=== PATIENT | female | born 1955 | race Caucasian/White ===

== ENCOUNTER → 2016-05-01 | Outpatient (CLI) | payer BC ==
[~2016-05-01] MED LIST: AMLO-114 PO; ATOR-22 PO; CALC500C70 PO; CYAN10005 PO; ESCI10TA17 PO; METO1TAB69 PO; MULT-513 PO; PRLSR20 PO; PRM625 PO; [UNRECOGNIZED DRUG - OTHER]
--- NOTE | 2016-05-01 13:35 | MAMMOGRAPHY REPORT ---
BILATERAL DIGITAL SCREENING MAMMOGRAM TOMOSYNTHESIS WITH CAD: 05/01/2016 CLINICAL HISTORY: Routine screening. Patient has no complaints. TECHNIQUE: Breast tomosynthesis in addition to standard 2D mammography was performed. Current study was also evaluated with a Computer Aided Detection (CAD) system. COMPARISON: Comparison is made to exams dated: 04/04/2015 mammogram, 02/12/2013 mammogram, 02/22/2014 mammogram, 02/10/2012 mammogram, and 02/05/2011 mammogram - [facility]. BREAST COMPOSITION: The tissue of both breasts is heterogeneously dense, which may obscure small ma sses. FINDINGS: No suspicious masses, calcifications, or areas of architectural distortion are noted in e ither breast. There has been no significant interval change compared to prior exams. A biopsy marke r clip with associated calcifications in the left 12:00 breast is stable. A biopsy marker clip is a lso noted in the right upper outer quadrant. IMPRESSION: ACR BI-RADS CATEGORY 2: BENIGN There is no mammographic evidence of malignancy. A 1 year screening mammogram is recommended. The p atient will receive written notification of the results. Approximately 10% of breast cancers are not detected with mammography. A negative mammographic repor t should not delay biopsy if a clinically suggestive mass is present. Sindy Hamm M.D. /:05/01/2016 12:52:03 Vocal Performer: Yahir GRIMM(R)(M), [facility] letter sent: Normal 1/2 BI-RADS Code: ACR BI-RADS Category 2: Benign
== END | disposition home or self-care (01) ==
LOC: C.MAMM 09:40
PROVIDERS: ATTEND Obstetrics & Gynecology
DX: Z12.31 Encounter for screening mammogram for malignant neoplasm of breast (principal)

== ENCOUNTER → 2017-06-09 | Outpatient (CLI) | payer OTHER ==
[~2017-06-09] MED LIST changes: +METO100T44 PO; -METO1TAB69 PO
--- NOTE | 2017-06-10 07:46 | MAMMOGRAPHY REPORT ---
BILATERAL DIGITAL SCREENING MAMMOGRAM TOMOSYNTHESIS WITH CAD: 06/09/2017 CLINICAL HISTORY: Routine screening. TECHNIQUE: Breast tomosynthesis in addition to standard 2D mammography was performed. Current study was also evaluated with a Computer Aided Detection (CAD) system. COMPARISON: Comparison is made to exams dated: 05/01/2016 mammogram, 04/04/2015 mammogram, 02/22/2014 mammogram, 02/12/2013 mammogram, 02/10/2012 mammogram, and 02/05/2011 mammogram - [facility]. BREAST COMPOSITION: There are scattered areas of fibroglandular density in both breasts. FINDINGS: There is stable nodularity of the right breast, and a stable dumbbell-shaped biopsy marker clip in the right upper outer quadrant. A linear scar marker overlies the 12:00 left breast and the re is a stable alex-shaped biopsy marker clip in the 12:00 left breast. There are stable punctate den sities near the scar marker in the left breast. However, there is a possible new cluster of microcalc ifications in the 6:00 posterior left breast, for which additional spot magnification views are recom mended. No other suspicious mass, architectural distortion or cluster of microcalcifications is seen. IMPRESSION: ACR BI-RADS CATEGORY 0: INCOMPLETE EVALUATION: NEED ADDITIONAL IMAGING EVALUATION The cluster of microcalcifications in the 6:00 posterior left breast need additional imaging evaluati on. The patient will be called to schedule an appointment. Approximately 10% of breast cancers are not detected with mammography. A negative mammographic report should not delay biopsy if a clinically suggestive mass is present. Mamie Reynoso M.D. ay/:06/09/2017 17:02:49 Sheet Metal Superintendent: Yahir GRIMM(Jarod)(M), [facility] letter sent: Addl Imaging 0 BI-RADS Code: ACR BI-RADS Category 0: Incomplete Evaluation: Need Additional Imaging Evaluation
== END | disposition home or self-care (01) ==
LOC: C.MAMM 14:34
PROVIDERS: ATTEND Obstetrics & Gynecology
DX: Z12.31 Encounter for screening mammogram for malignant neoplasm of breast (principal); R92.0 Mammographic microcalcification found on diagnostic imaging of breast

== ENCOUNTER → 2017-06-18 | Outpatient (CLI) | payer OTHER ==
--- NOTE | 2017-06-19 07:58 | MAMMOGRAPHY REPORT ---
UNILATERAL LEFT DIGITAL DIAGNOSTIC MAMMOGRAM: 06/18/2017 CLINICAL HISTORY: Callback from screening mammography for a new cluster of microcalcifications in the 6:00 left breast. Patient has a history of prior benign stereotactic biopsy and excisional biopsy i n the 12:00 left breast. TECHNIQUE: Spot magnification left CC and ML views were obtained. COMPARISON: Comparison is made to exams dated: 06/09/2017 mammogram, 05/01/2016 mammogram, 04/04/2015 ma mmogram, 02/22/2014 mammogram, 02/12/2013 mammogram, and 02/10/2012 mammogram - [facility]. BREAST COMPOSITION: There are scattered areas of fibroglandular density in the left breast. FINDINGS: There is a 15 mm cluster of amorphous microcalcifications in a somewhat linear distributio n in the 6:00 posterior left breast. No associated asymmetry or architectural distortion. These génesis rocalcifications were not definitely seen on prior mammograms including spot magnification views perf ormed in 2007 and although they could represent benign calcifications such as those determined to be benign from prior biopsies, there remain indeterminate given the interval development and definitive characterization with a stereotactic guided biopsy is recommended. IMPRESSION: ACR BI-RADS CATEGORY 4: SUSPICIOUS Left breast stereotactic guided biopsy is recommended for a new 15 mm cluster of amorphous microcalci fications in the 6:00 posterior breast. These results and recommendations were discussed with the patient at the time of the exam. She tenta tively schedule the biopsy prior to leaving our department. Approximately 10% of breast cancers are not detected with mammography. A negative mammographic report should not delay biopsy if a clinically suggestive mass is present. Mamie Reynoso M.D. ay/:06/18/2017 09:24:12 Coat Hanger Shaper Machine Operator: Yahir GRIMM(Jarod)(M), [facility] letter sent: Abnormal 4/5 BI-RADS Code: ACR BI-RADS Category 4: Suspicious
== END | disposition home or self-care (01) ==
LOC: C.MAMM 09:00
PROVIDERS: ATTEND Obstetrics & Gynecology
DX: R92.0 Mammographic microcalcification found on diagnostic imaging of breast (principal)

== ENCOUNTER → 2017-07-08 | Outpatient (CLI) | payer OTHER ==
--- NOTE | 2017-07-08 13:13 | Discharge Instructions ---
Discharge Instructions Procedure Procedure Date: July 08, 2017. Reason for visit: Left Calcs. Discharge Discharge Date: July 08, 2017. Discharge Diagnosis: post left breast stereotactic guided biopsy Instructions Activity Recommendations: Additional Limitations (see below) Return to School/Work: no limitations Recommended Home Diet: No Limitations Provider Instructions: ACTIVITY RECOMMENDATIONS: * No lifting, pushing, pulling or exercising the affected side for three days. RETURN TO SCHOOL/WORK: * You may return to work/school after the procedure, but do not perform any strenuous activities for 24 to 48 hours. MEDICATIONS: * Tylenol (two 325 mg) every four to six hours if needed for mild pain (if not allergic to Tylenol). DIET: * Resume previous diet. SPECIAL CARE INSTRUCTIONS: * Keep biopsy site dry for 24 hours. May shower after 24 hours, but do not soak (bathe) incision. * May remove Tegaderm (plastic patch) tomorrow AFTER showering. * Leave the steri-strips on for one week. Allow the steri-strips to fall off by themselves. If not off after one week, you may remove them. You may place a Bandaid crosswise over the strips, if desired. * Apply ice 10 minutes on and 10 minutes off as needed. * Wear a bra at bedtime to sleep more comfortably for 2-3 days. * Your referring physician should have the results after approximately 5 to 7 business days. * Call for unusual bleeding, fever, drainage, etc or if you have any questions call [phone] during normal business hours or after hours call Dr Reynoso, . FOLLOW UP VISIT: Follow-up with Referring Physician as scheduled. Allergies Coded Allergies: Animal Dander (Verified Allergy, Unknown, ., 07/13/14) Dust (Verified Allergy, Unknown, ., 07/13/14) NO KNOWN DRUG ALLERGIES (Verified Allergy, Unknown, ., 07/13/14) POLLEN (Verified Allergy, Unknown, ., 07/13/14) Emmy Fontanez Recommendations: Call your doctor if: * Temperature above 101 degrees * Pain not relieved by pain medicine ordered * There is increased drainage or redness from any incision * You have any unanswered questions or concerns. Your Doctors Instructions noted above were prepared by provider Mamie Reynoso. Patient Signature Section: Patient Instructions Signature Page Esther Starke Patient (or Guardian) Signature/Date: I have read and understand the instructions given to me by my caregivers. Caregiver/RN/Doctor Signature/Date: The above-named patient and/or guardian has received patient instructions on this date. + Original Patient Signature Page (only) stays with chart. Please make copy for patient.
--- NOTE | 2017-07-08 15:22 | MAMMOGRAPHY REPORT ---
STEREOTACTIC GUIDED BIOPSY LEFT BREAST: 07/08/2017 CLINICAL HISTORY: 15 mm cluster of amorphous and punctate microcalcifications in the 6:00 posterior l eft breast, located distal to the previous excisional biopsy and stereotactic biopsy which were perfo rmed in the 12:00 middle one third of the left breast. Patient presents for stereotactic guided biop sy. COMPARISON: Comparison is made to exams dated: 06/18/2017 mammogram, 06/09/2017 mammogram, 05/01/2016 ma mmogram, 04/26/2015 mammogram, and 04/13/2015 mammogram - [facility]. PATIENT CONSENT: After explaining the risks, benefits and alternatives of the procedure to the patien t, informed consent was obtained both verbally and in writing. Specific risks include: Bleeding, inf ection, puncture of adjacent structure, pain, nontarget biopsy, sampling error, metal allergy and med ication reaction. PROCEDURE DESCRIPTION: A time-out was performed and the left breast was confirmed as the site of biop sy. The patient was placed prone on the stereotactic biopsy table and the breast was placed in CC fro m below compression. A tomosynthesis information developer view was obtained which redemonstrates the punctate calcif ications in question. Repositioning was performed to offset a blood vessel located near the calcific ations in question. The calcifications were then targeted utilizing the coordinates obtained by the computer. The skin was prepped with Betadine. 1% Lidocaine with and without epinipherine was adminis tered as local anesthesia. A small skin incision was made. Through the incision, the needle was inse rted to the depth determined by the computer. 4 samples were obtained using a DB3 [employer] 9-gauge vac uum-assisted biopsy device. The specimen radiograph demonstrated several special service representative microcalcific ations, therefore, a T-shaped metallic marker was placed at the biopsy site. There was no immediate c omplication. Hemostasis was achieved after several minutes of manual compression. The samples were s ent to pathology in two appropriately labeled containers, "with calcifications" and "without calcific ations". All of the samples were obtained from the same single biopsy site. Postprocedure CC and ML views of the left breast were obtained. There is a new T-shaped metallic bi opsy marker clip in the 6:00 far posterior left breast. A small hematoma is noted surrounding the bi opsy clip measuring approximately 9 x 27 mm. There are also a few residual microcalcifications at th e biopsy site. A alex-shaped biopsy marker clip is again noted in the 12:00 middle one third of the l eft breast, denoting a site of remote benign stereotactic biopsy. IMPRESSION: STEREOTACTIC GUIDED BIOPSY Status post left breast stereotactic guided biopsy of clustered microcalcifications in the 6:00 poste rior breast, with T-shaped biopsy marker clip placed at the site. The patient will receive notification of the pathology results from her referring physician. Mamie Reynoso M.D. ay/:07/08/2017 13:44:56 Coffee Grinder: Dipti SCALES)(Maty), [facility]
--- NOTE | 2017-07-08 15:22 | MAMMOGRAPHY REPORT ---
UNILATERAL LEFT DIGITAL DIAGNOSTIC MAMMOGRAM: 07/08/2017 CLINICAL HISTORY: Status post left breast stereotactic guided biopsy of a grouping of punctate microc alcifications in a linear distribution in the 6:00 posterior breast. Patient has a history of prior benign excisional biopsy and stereotactic biopsy in the left breast and also stereotactic biopsy in t he right breast. Please refer to the report from left breast stereotactic guided biopsy performed at the same time for full detail. IMPRESSION: POST PROCEDURE IMAGING FOR MARKER PLACEMENT Please refer to the report from left breast stereotactic guided biopsy performed at the same time for full detail. Approximately 10% of breast cancers are not detected with mammography. A negative mammographic report should not delay biopsy if a clinically suggestive mass is present. Mamie Reynoso M.D. ay/:07/08/2017 13:41:57 Model Maker Fiberglass: Dipti SCALES)(Maty), [facility] BI-RADS Code: Post Procedure Imaging For Marker Placement
== END | disposition home or self-care (01) ==
LOC: C.MAMM 12:27
PROVIDERS: ATTEND Obstetrics & Gynecology
DX: R92.0 Mammographic microcalcification found on diagnostic imaging of breast (principal)